=== PATIENT | female | born 1955 | race Caucasian/White ===

== ENCOUNTER 2017-02-21 12:28 | Inpatient (IN) | payer OTHER, MEDICARE ==
[~2017-02-21] VITALS: Ht 160 cm; Wt 66.4 kg
[~2017-02-21 12:28] MED LIST: BENZ1TAB PO; RISP3 PO; SERO400T PO; SERO50TA PO; TRAZ50TA12 PO
[2017-02-21 12:30] VITALS: BP 129/63; PULSE 84; RESP 28; TEMP 98.6; O2SAT 99
--- NOTE | 2017-02-21 13:04 | PD ---
HPI Chief Complaint: Psychiatric Symptoms Time Seen by Provider: 12:55 Travel History International Travel<30 days: No Contact w/Intl Traveler<30days: No Traveled to known affect area: No History of Present Illness HPI 61-year-old female long-standing history of schizophrenia presents with her sister as well as her son who is her power of account planner for psychiatric evaluation. For the past few days the patient has been refusing to take her psychiatric medication. She takes Benztropine, Seroquel and trazodone. For the past few days she has been having increasing hallucinations. Specifically she reports that she hears voices of "a colored man" who is screaming at her and threatening her and telling her to kill herself. She also sees people and swats at them. She has been psychiatrically decompensating at home and this prompted evaluation. She sees psychiatry at [facility]. She denies any suicidal or homicidal ideation, drug or alcohol use. She has no other complaints. PFSH Past Medical History Blood Disorders: No Anxiety: Yes Depression: Yes Cancer: No Cardiovascular Problems: No Diabetes: No Diminished Hearing: No Endocrine: Yes (PER MEDICAL RECORD) Gastrointestinal Disorders: No Glaucoma: Yes Genitourinary: No Headaches: Yes Immune Disorder: No Implanted Vascular Access Dvce: No Musculoskeletal: No Neurologic: No Psychiatric: Yes Reproductive: No Respiratory: No Integumentary: Yes (PT PICKS AT SKIN) Immunizations Current: Yes Schizophrenia: Yes (DIAGNOSED A CHILD) Seizures: No Thyroid Disease: Yes (HYPOTHYROID- PER MEDICAL RECORD) Menopausal: Yes : 0 Para: 0 Miscarriage: 0 : 0 Past Surgical History Eye Surgery: Yes Other Surgery: Yes Social History Alcohol Use: No Tobacco Use: No (quit years ago ) Substance Use: No Allergies-Medications (Allergen,Severity, Reaction): Coded Allergies: Risperdal (Verified Allergy, Unknown, 09/11/16) Increased behaviors such as spreading feces on the wall and urinate on herself per nephew. Per nephew/DARA Silva [phone]. Zyprexa (Verified Allergy, Unknown, 09/11/16) Per nephew her delusions became more extreme. Per nephew/DARA Silva [phone]. Depakote (Verified Adverse Reaction, Unknown, 09/11/16) Thrombocytopenia. Reported Meds & Prescriptions Reported Meds & Active Scripts Active Trazodone (Trazodone HCl) 50 Mg Tab 50 Mg PO HS PRN Seroquel (Quetiapine Fumarate) 50 Mg Tab 50 Mg PO DAILY @ 9AM, 6PM Seroquel (Quetiapine Fumarate) 400 Mg Tab 400 Mg PO HS Benztropine (Benztropine Mesylate) 1 Mg Tab 1 Mg PO BID Reported Seroquel (Quetiapine Fumarate) 400 Mg Tab 400 Mg PO HS Benztropine (Benztropine Mesylate) 1 Mg Tab 1 Mg PO BID Risperdal (Risperidone) 3 Mg Tab 3 Mg PO Q12HR Review of Systems Except as stated in HPI: all other systems reviewed are Neg Physical Exam Narrative GENERAL: Well-developed well-nourished female in no acute distress SKIN: Warm and dry. HEAD: Atraumatic. Normocephalic. EYES: Pupils equal and round. No scleral icterus. No injection or drainage. ENT: No nasal bleeding or discharge. Mucous membranes pink and moist. NECK: Trachea midline. No JVD. CARDIOVASCULAR: Regular rate and rhythm. No murmur appreciated. RESPIRATORY: No accessory muscle use. Clear to auscultation. Breath sounds equal bilaterally. GASTROINTESTINAL: Abdomen soft, non-tender, nondistended. Hepatic and splenic margins not palpable. MUSCULOSKELETAL: No obvious deformities. NEUROLOGICAL: Awake and alert. No obvious cranial nerve deficits. Motor grossly within normal limits. Normal speech. PSYCHIATRIC: Insight and judgment limited. Data Data Last Documented VS Vital Signs Date Time Temp Pulse Resp B/P Pulse Ox O2 Delivery O2 Flow Rate FiO2 02/21/17 12:30 98.6 84 28 129/63 99 Room Air Orders Complete Blood Count With Diff (02/21/17 12:56) Comprehensive Metabolic Panel (02/21/17 12:56) Psych Screen (02/21/17 12:56) Drug Screen, Random Urine (02/21/17 12:56) Labs Laboratory Tests Test 02/21/17 02/21/17 13:10 13:20 White Blood Count 6.3 TH/MM3 Red Blood Count 3.75 MIL/MM3 Hemoglobin 11.9 GM/DL Hematocrit 34.5 % Mean Corpuscular Volume 92.0 FL Mean Corpuscular Hemoglobin 31.7 PG Mean Corpuscular Hemoglobin 34.4 % Concent Red Cell Distribution Width 12.6 % Platelet Count 256 TH/MM3 Mean Platelet Volume 7.1 FL Neutrophils (%) (Auto) 69.8 % Lymphocytes (%) (Auto) 18.6 % Monocytes (%) (Auto) 8.2 % Eosinophils (%) (Auto) 2.8 % Basophils (%) (Auto) 0.6 % Neutrophils # (Auto) 4.4 TH/MM3 Lymphocytes # (Auto) 1.2 TH/MM3 Monocytes # (Auto) 0.5 TH/MM3 Eosinophils # (Auto) 0.2 TH/MM3 Basophils # (Auto) 0.0 TH/MM3 CBC Comment DIFF FINAL Differential Comment Sodium Level 140 MEQ/L Potassium Level 3.8 MEQ/L Chloride Level 104 MEQ/L Carbon Dioxide Level 31.3 MEQ/L Anion Gap 5 MEQ/L Blood Urea Nitrogen 21 MG/DL Creatinine 0.96 MG/DL Estimat Glomerular Filtration 59 ML/MIN Rate Random Glucose 94 MG/DL Calcium Level 9.3 MG/DL Total Bilirubin 0.6 MG/DL Aspartate Amino Transf 22 U/L (AST/SGOT) Alanine Aminotransferase 12 U/L (ALT/SGPT) Alkaline Phosphatase 82 U/L Total Protein 7.5 GM/DL Albumin 3.0 GM/DL Urine Opiates Screen NEG Urine Barbiturates Screen NEG Urine Amphetamines Screen NEG Urine Benzodiazepines Screen NEG Urine Cocaine Screen NEG Urine Cannabinoids Screen NEG MDM Medical Decision Making Medical Screen Exam Complete: Yes Emergency Medical Condition: Yes Medical Record Reviewed: Yes Differential Diagnosis Acute psychosis, schizophrenia, medication noncompliance Narrative Course 61-year-old female with history of schizophrenia presents with worsening hallucinations, refusing to take her outpatient psychiatric medications. Mental health screening discussed with the patient. Psychiatric screen ordered. The patient is medically cleared for psychiatric disposition. Diagnosis Primary Impression: Schizophrenia Qualified Code: F20.9 - Schizophrenia, unspecified type Tal Gordillo February 21, 2017 13:04
[2017-02-21 13:22] LABS: AUTOMATED NEUTROPHIL # 4.4 TH/MM3 (1.8-7.7); BASOPHIL % 0.6 % (0.0-2.0); EOSINOPHIL # 0.2 TH/MM3 (0-0.4); EOSINOPHIL % 2.8 % (0.0-4.0); HEMATOCRIT 34.5 % (35.0-46.0); HEMO FLAGS DIFF FINAL; LYMPH % 18.6 % (9.0-44.0); LYMPHOCYTE # 1.2 TH/MM3 (1.0-4.8); MEAN CORPUSCULAR HEMOGLOBIN 31.7 PG (27.0-34.0); MEAN CORPUSCULAR HGB CONC 34.4 % (32.0-36.0); MONO % 8.2 % (0.0-8.0); NEUT % 69.8 % (16.0-70.0); PLATELET COUNT 256 TH/MM3 (150-450); RED BLOOD COUNT 3.75 MIL/MM3 (4.00-5.30); RED CELL DISTRIBUTION WIDTH 12.6 % (11.6-17.2); WHITE BLOOD COUNT 6.3 TH/MM3 (4.0-11.0)
[2017-02-21 13:43] LABS: ANION GAP 5 MEQ/L (5-15); AST (GOT) 22 U/L (15-37); BICARBONATE 31.3 MEQ/L (21.0-32.0); BLOOD UREA NITROGEN 21 MG/DL (7-18); CHLORIDE 104 MEQ/L (98-107); GLOMERULAR FILTRATION RATE 59 ML/MIN (>89); POTASSIUM 3.8 MEQ/L (3.5-5.1); SODIUM (NA) 140 MEQ/L (136-145)
[2017-02-21 13:46] LABS: AMPHETAMINE, URINE NEG (NEG); BARBITURATES, URINE NEG (NEG); COCAINE, URINE NEG (NEG)
[2017-02-21 13:47] LABS: ALKALINE PHOSPHATASE 82 U/L (45-117); ALT (GPT) 12 U/L (10-53); TOTAL BILIRUBIN ADULT 0.6 MG/DL (0.2-1.0)
[2017-02-21] MEDS ORDERED: MULT-135 PO (16:54)
[2017-02-21 18:48] VITALS: BP 132/73; PULSE 76; RESP 16; O2SAT 96
[2017-02-21 21:43] VITALS: BP 128/68; PULSE 88; RESP 16; O2SAT 99
[2017-02-22 01:48] VITALS: BP 139/78; PULSE 79; RESP 20; O2SAT 97
[2017-02-22] MEDS: NEOMYCIN/POLYMYXIN/HYDROCORT OTIC SOLN 10 ML BTL RIGHT EAR SCH ×4 (02:30→17:37)
[2017-02-22 05:00] VITALS: BP 132/76; PULSE 78; RESP 20; O2SAT 98
[2017-02-22 10:30] VITALS: BP 168/90; PULSE 89; RESP 16; TEMP 99.2; O2SAT 100
[2017-02-22] MEDS: QUEtiapine FUMARATE 25 MG TAB PO ONE (11:45)
[2017-02-22] MEDS: LORazepam 2 MG/ML VIAL IM ONE ×2 (11:45→12:48)
[2017-02-22 13:23] VITALS: BP 131/76; PULSE 66; RESP 18; TEMP 98.2; O2SAT 95
--- NOTE | 2017-02-22 14:41 | PD ---
History of Present Illness Chief Complaint: Psychiatric Symptoms Time Seen by Provider: 11:15 Travel History International Travel<30 Days: No Contact w/Intl Traveler<30days: No Known affected area: No Legal Status Legal Status: Cox Act Cox Act Signed By: VIJAY Crespo History of Present Illness: History of Present Illness HPI 61-year-old female with history of schizoaffective disorder, multiple psychiatric hospitalizations who present to [facility] ED with her sister as well as her son who is her power of attorney lawyer for psychiatric evaluation. As per the sister and the nephew the patient has been refusing to take her psychiatric medication and has been hiding it behind the toilet, she has been more agitated and reports voices that tell her to get a hammer and hurt people as well as reports that she hears voices of "a colored man" who is screaming at her and threatening her and telling her to kill herself. She also sees people and swats at them. EMR is reviewed. her last psychiatric hosp was at [facility] in Sep 2016 for treatment of psychosis. Patient is seen in J pod. She is alert, responds to her name, is s creaming and talking very loudly. She is threatening to walk out of the hospital. She is refusing to answer any questions and screams at staff to " let me go or I will walk out". That is not my sister and I am not from here . I am from [place] and that is where I am going to go". She does not respond to verbal redirection.Requires medication at this time. PFSH Past Medical History Blood Disorders: No Anxiety: Yes Depression: Yes Cancer: No Cardiovascular Problems: No Diabetes: No Diminished Hearing: No Endocrine: Yes (PER MEDICAL RECORD) Gastrointestinal Disorders: No Glaucoma: Yes Genitourinary: No Headaches: Yes Immune Disorder: No Implanted Vascular Access Dvce: No Musculoskeletal: No Neurologic: No Psychiatric: Yes Reproductive: No Respiratory: No Integumentary: Yes (PT PICKS AT SKIN) Immunizations Current: Yes Schizophrenia: Yes (DIAGNOSED A CHILD) Seizures: No Thyroid Disease: Yes (HYPOTHYROID- PER MEDICAL RECORD) Menopausal: Yes : 0 Para: 0 Miscarriage: 0 : 0 Past Surgical History Eye Surgery: Yes Other Surgery: Yes Psychiatric History Psychiatric History Hx Psychiatric Treatment: Patient has received tretament in [facility] since 2011 and twice in 2014 and this year 2016 she has returned for the 6th admission She denies having any of those thoughts at this time and she also denies having had any voices today and feels she is much better. However she cries and appears sad at the time of this interview. History of Inpatient Treatment: Yes Guns or firearms in home: No Social History Single female who lives with her sister as well as with her nephew. Maribel is blind. On disability Hx Alcohol Use: No Hx Tobacco Use: No Hx Substance Use: No Hx of Substance Use Treatment: No Family Psychiatric History Unable to obtain at thsi time. Allergies-Medications (Allergen,Severity, Reaction): Coded Allergies: Risperdal (Verified Allergy, Unknown, 09/11/16) Increased behaviors such as spreading feces on the wall and urinate on herself per nephew. Per nephew/DARA Silva [phone]. Zyprexa (Verified Allergy, Unknown, 09/11/16) Per nephew her delusions became more extreme. Per nephew/DARA Silva [phone]. Depakote (Verified Adverse Reaction, Unknown, 09/11/16) Thrombocytopenia. Reported Meds & Prescriptions Reported Meds & Active Scripts Active Trazodone (Trazodone HCl) 50 Mg Tab 50 Mg PO HS PRN Seroquel (Quetiapine Fumarate) 50 Mg Tab 50 Mg PO DAILY @ 9AM, 6PM Seroquel (Quetiapine Fumarate) 400 Mg Tab 400 Mg PO HS Benztropine (Benztropine Mesylate) 1 Mg Tab 1 Mg PO BID Reported Multi Vitamin (Multiple Vitamin) 1 Tab Tab 1 Tab PO DAILY Review of Systems ROS Limitations: Uncooperative, Psychotic Exam Alert: Yes [place]: Person (ox 4 ) Mood: Calm Affect: Appropriate Speech: Clear, Illogical Eye Contact: Other Memory Intact: Comment (Unable to tets) Hallucinations: Auditory Delusions: No (unable to determine) Suicidal: Ideation (Unable to assess) Homicidal: Ideation (to take a hammer and hurt people) MDM Medical Decision Making Medical Record Reviewed: Yes Assessment/Plan 61 year old female with history of schizoaffective disorder who family report has been refusing her psychiatric medication and they found her medication behind the toilet, has been more agitated as well as experiencing increase in hallucinations. At this time the patient is agitated, unable to accept verbal redirection. threatening to leave the hospital. This patient will be admitted in order to restart her psychiatric medication, maintain safety as well as stabilize current symptoms. Orders Diet Regular Basic (02/21/17 Dinner) Xaogzzco-[id number]-Hk Otic Soln (Cortispo (02/22/17 02:30) Diet Regular Basic (02/22/17 Lunch) Lorazepam Inj (Ativan Inj) (02/22/17 11:30) Quetiapine (Seroquel) (02/22/17 11:30) Results Vital Signs Date Time Temp Pulse Resp B/P Pulse Ox O2 Delivery O2 Flow Rate FiO2 02/22/17 13:23 98.2 66 18 131/76 95 Room Air 02/22/17 10:30 99.2 89 16 168/90 100 Room Air 02/22/17 05:00 78 20 132/76 98 Room Air 02/22/17 01:48 79 20 139/78 97 Room Air 02/21/17 21:43 88 16 128/68 99 Room Air 02/21/17 18:48 76 16 132/73 96 Room Air Diagnosis Primary Impression: SCHIZOAFFECTIVE DISORDER, BIPOLAR TYPE Admitting Information Admitting Physician Requests: Admit Angela Kumari DENTAL TREATMENT COORDINATOR February 22, 2017 14:40
[2017-02-22] MEDS ORDERED: ALUMINUM/MAGNESIUM/SIMETH 30 ML CUP PO PRN (15:00)
[2017-02-22] MEDS ORDERED: MAGNESIUM HYDROXIDE SUSP 30 ML CUP PO PRN (15:00)
[2017-02-22 16:27] VITALS: BP 136/63; PULSE 81; TEMP 97.2
[2017-02-23 06:00] VITALS: BP 105/55; PULSE 68; RESP 18; TEMP 97.8; O2SAT 98
[2017-02-23] MEDS: NEOMYCIN/POLYMYXIN/HYDROCORT OTIC SOLN 10 ML BTL RIGHT EAR SCH ×5 (06:00→21:57)
[2017-02-23 08:31] LABS: ANION GAP 9 MEQ/L (5-15); BICARBONATE 27.6 MEQ/L (21.0-32.0); BLOOD UREA NITROGEN 16 MG/DL (7-18); CHLORIDE 103 MEQ/L (98-107); GLOMERULAR FILTRATION RATE 80 ML/MIN (>89); POTASSIUM 3.6 MEQ/L (3.5-5.1); SODIUM (NA) 140 MEQ/L (136-145)
[2017-02-23 08:33] LABS: HDL CHOLESTEROL 67.3 MG/DL (40.0-60.0); LDL CHOLESTEROL 92 MG/DL (0-99)
[2017-02-23] MEDS ORDERED: NICOTINE 21 MG/24 HR PATCH T-DERMAL SCH (09:00)
[2017-02-23] MEDS ORDERED: ACETAMINOPHEN 325 MG TAB PO PRN (15:15)
[2017-02-23] MEDS ORDERED: ALUMINUM/MAGNESIUM/SIMETH 30 ML CUP PO PRN (15:15)
[2017-02-23] MEDS ORDERED: diphenhydrAMINE HCL 50 MG CAP PO PRN (15:15)
[2017-02-23] MEDS ORDERED: hydrOXYzine HCL 50 MG TAB PO PRN (15:15)
--- NOTE | 2017-02-23 15:36 | HHI.HP ---
Provisional Diagnosis Admission Date February 22, 2017 at 15:01 [place] I. Schizoaffective disorder bipolar type f 25.0 Certification of Person's Competence To Provide Express and Informed Consent I have personally examined Emily Stearns , a person being served at [facility] on, February 23, 2017 15:14. Express and informed consent means consent voluntarily given in writing, by a competent person, after sufficient explanation and disclosure of the subject matter involved to enable the person to make a knowing and willful decision without any element of force, fraud, deceit, duress, or other form of constraint or coercion. This person is 18 years of age or older, is not now known to be incompetent to consent to treatment with a guardian advocate, and does not have a health care surrogate or proxy currently making medical treatment decisions. I have found this person to be one of the following: [] Competent to provide express and informed consent, as defined above, for voluntary admission to this facility and is competent to provide express and informed consent for treatment. He/she has the consistent capacity to make well reasoned, willful, and knowing decisions concerning his or her medical or mental health treatment. The person fully and consistently understands the purpose of the admission for examination/placement and is fully capable of personally exercising all rights assured [place] [xx] Incompetent to provide express and informed consent to voluntary admission , and this is incompetent to provide express and informed consent to treatment. The person must be transferred to involuntary status and a petition for a guardian advocate filed with the Circuit Court. [] Refusing to provide express and informed consent to voluntary admission but is competent to provide express and informed consent for treatment. The person must be discharged or transferred to involuntary status. Form shall be completed within 24 hours of a person's arrival at the receiving facility and filed in the clinical record of each person: 1. Admitted on a voluntary basis 2. Permitted to provide express and informed consent to his/her own treatment 3. Allowed to transfer from involuntary to voluntary status 4. Prior to permitting a person to consent to his or her own treatment after having been previously found incompetent to consent to treatment. History of Present Illness Capacity: Lacks Capacity HPI Patient is a 61-year-old white female comes here under Cox act from [facility] signed by Angela LINARES psychiatric nurse practitioner. That document reviewed and agreed with this dated February 22, 2017 at 11 AM essentially stating that patient is refusing medication exercising her medication behind the toilet the through increase auditory hallucinations telling her to get a hammer and to hurt others. Patient seen screened in the ED urine toxicology negative. Patient was admitted to the 2500 unit. She has had multiple visits to [facility] into the ED most recently being admitted 09/12/16 through 09/22/16 visit [id number]. At the present time patient seen in her room on 2500 with nurse Juan C and nurse Evelia. Patient laying in bed whining and crying yelling and markedly disorganized manner. Of interest patient is also legally blind. She states she does want to live at home anymore that she is afraid of her siblings who other her caregiver. She also somewhat vaguely acknowledges auditory hallucinations of a somewhat command nature telling her to hurt others. She acknowledges noncompliance with her medication is acknowledged that she gets more upset easier and more angry when she is off her medicine. She ascribes this to her family neck giving her her medicine. In any event at the present time patient markedly psychotic and delusional with auditory hallucinations. She does meet criteria under the Cox act for involuntary psychiatric hospitalization and also feel she does not have capacity to make decisions concerning either admission or medication thus I'll ask for healthcare surrogate and guardian advocate as well as doing a 1st opinion and requesting second opinion. We'll continue medication per the med reconciliation form hopeless be fairly short stay. We need to consult with patient's family about possibility of return to the family home versus a different placement Review of Systems ROS Limitations: Clinical Condition, Altered Mental Status, Other (patient making multiple somatic complaints about every organ system described from sore throat stiff muscles achy joints upset stomach chest pain for pain) Past Psych History Psychological trauma history Unable to obtain due to patient psychotic condition Violence risk - others (6 mos) Patient family give him or to harm her siblings Violence risk - self (6 mos) Patient denies Substance Abuse History Drugs/Alcohol past 12 months Denies Past Family Social History Coded Allergies: Risperdal (Verified Allergy, Unknown, 09/11/16) Increased behaviors such as spreading feces on the wall and urinate on herself per nephew. Per nephew/PODarrion - Vignesh Silva [phone]. Zyprexa (Verified Allergy, Unknown, 09/11/16) Per nephew her delusions became more extreme. Per nephew/POA - Vignesh Ricardo [phone]. Depakote (Verified Adverse Reaction, Unknown, 09/11/16) Thrombocytopenia. Past Medical History Patient medically cleared ED Active Scripts Trazodone 50 Mg Tab50 Mg PO HS PRN (INSOMNIA) #30 TAB Ref 0 Prov:Pablito Simms MD 09/22/16 Quetiapine (Seroquel)50 Mg Tab50 Mg PO daily @ 9am, 6pm #60 TAB Ref 0 Prov:Pablito Simms MD 09/22/16 Quetiapine (Seroquel)400 Mg [id number] Mg PO HS #30 TAB Ref 0 Prov:Pablito Simms MD 09/22/16 Benztropine 1 Mg Tab1 Mg PO BID #60 TAB Ref 0 Prov:Pablito Simms MD 09/22/16 Reported Medications Multiple Vitamin (Multi Vitamin)1 Tab Tab1 Tab PO DAILY 02/21/17 Discontinued Reported Medications Quetiapine (Seroquel)400 Mg [id number] Mg PO HS #30 TAB Ref 0 09/11/16 Benztropine 1 Mg Tab1 Mg PO BID #60 TAB Ref 0 09/11/16 Risperidone (Risperdal)3 Mg Tab3 Mg PO Q12HR #60 TAB Ref 0 09/11/16 Current Medications Medications (Trade) Dose Ordered Sig/Zhane Route Start Time Stop Time Status Last Admin (Cortisporin Otic Soln) 3 drop Q6HR RIGHT EAR 02/22/17 02:30 02/22/17 17:37 (Tylenol) 650 mg Q4H PRN PO 02/22/17 15:00 (Milk Of Magnesia Liq) 30 ml DAILY PRN PO 02/22/17 15:00 (Mag-Al Plus Susp Liq) 30 ml Q6H PRN PO 02/22/17 15:00 (Benadryl) 50 mg HS PRN PO 02/23/17 15:15 UNV (Tylenol) 650 mg Q4H PRN PO 02/23/17 15:15 UNV (Milk Of Magnesia Liq) 30 ml DAILY PRN PO 02/23/17 15:15 UNV (Mag-Al Plus Susp Liq) 30 ml Q6H PRN PO 02/23/17 15:15 UNV (Atarax) 50 mg Q6H PRN PO 02/23/17 15:15 UNV (Cogentin) 1 mg BID PO 02/23/17 21:00 UNV (Theragran) 1 tab DAILY PO 02/24/17 09:00 UNV (Desyrel) 50 mg HS PRN PO 02/23/17 15:15 UNV Non-Formulary Medication 400 mg HS PO 02/23/17 21:00 UNV Family History Unknown at this any family history mental health issues Social History Patient lives with family Patient's Strengths (min. 2) Patient verbal able access healthcare Physical Exam Patient seen screened in the ED exam reviewed and agreed with patient laying in bed doing markedly agitated while yelling when we came in her room. The neck appears supple. She is in no respiratory distress heart sounds normal abdomen soft for range of motion all 4 extremities Vital Signs Vital Signs Date Time Temp Pulse Resp B/P Pulse Ox O2 Delivery O2 Flow Rate FiO2 02/23/17 06:00 97.8 68 18 105/55 98 02/22/17 13:23 Room Air I/O 02/22/17 02/22/17 02/22/17 07:59 15:59 23:59 Intake Total 360 ml Balance 360 ml Mental Status Examination Alert diffusely confused loud screaming angry thin slender disheveled white female blind with no eye contact Appearance Disheveled screaming and uncooperative irritable Speech: Pressured, Rapid, Fast, Circumstantial, Tangential, Other (disorganized ) Orientation: Person Memory: Impaired (describe) (poor) Thought Process: Linear, Other (disorganized) Thought Content: Paranoid Language Poor Fund of Knowledge Small Hallucination Type: Auditory (with a somewhat command nature) Attention and Concentration: Other (poor) Suicidal Ideation: No (denies) Previous Suicide Attempts: No (known at this time) Homicidal Ideation: Yes (made threats to harm her siblings with a hammer) Previous Homicide Attempts: No Insight: Poor Judgment: Poor Affect: Other (marked increased range and intensity) Mood: Angry, Oppositional, Irritable Motor Activity: Normal gait Assessment & Plan Problem List: (1) SCHIZOAFFECTIVE DISORDER, BIPOLAR TYPE ICD Code: F25.0 Assessment & Plan Estimated LOS: days patient psychotic with manic features markedly paranoid and delusional. Patient meets criteria for involuntary admission on the Cox act. The first she does not have capacity thus I'll ask for healthcare surrogate and guardian advocate will contact continue medication for med reconciliation Discharge Planning To be determined Request Surrog/Guard Advoc?: Yes Pablito Simms MD February 23, 2017 15:36
[2017-02-23 16:39] LABS: HEMOGLOBIN A1a 1.1 %; HEMOGLOBIN A1b 1.4 %; HEMOGLOBIN Ao 85.3 %; HEMOGLOBIN F 0.2 %; HEMOGLOBIN LA1C 2.1 %; HEMOGLOBIN P3 5.2 %
[2017-02-23] MEDS: QUEtiapine FUMARATE 25 MG TAB PO SCH (17:31)
[2017-02-23 18:17] VITALS: BP 103/57; PULSE 85; RESP 15; TEMP 99.1; O2SAT 97
[2017-02-23] MEDS: QUEtiapine FUMARATE 200 MG TAB PO SCH (21:00)
[2017-02-23] MEDS: BENZTROPINE MESYLATE 1 MG TAB PO SCH (21:13)
[2017-02-23] MEDS: ACETAMINOPHEN 325 MG TAB PO PRN (21:15)
[2017-02-24 05:29] VITALS: BP 109/53; PULSE 73; RESP 15; TEMP 97.5; O2SAT 96
[2017-02-24] MEDS: NEOMYCIN/POLYMYXIN/HYDROCORT OTIC SOLN 10 ML BTL RIGHT EAR SCH ×4 (05:56→20:48)
[2017-02-24] MEDS: QUEtiapine FUMARATE 25 MG TAB PO SCH ×2 (09:00→17:41)
[2017-02-24] MEDS: BENZTROPINE MESYLATE 1 MG TAB PO SCH ×2 (09:10→20:48)
[2017-02-24] MEDS: MULTIVITAMIN TAB PO SCH (09:10)
--- NOTE | 2017-02-24 09:39 | HHI.PYPN ---
Subjective Remarks Patient seen in day room with nurse Kandy, chart reviewed, patient compliant medications. Patient continues quite whiny loud, anterolaterally somewhat manipulative. Stating she wants to stay here. I reinforced the fact that this is crisis unit and that we need to consider placement issues while she returns home with her family or friends a retirement. Patient is not very happy with that statement. However she is compliant medications for now will continue treatment no change Review of Systems Except as stated in HPI: all other systems reviewed are Neg Objective Alert: Yes [place]: Person (ox 4 ) Mood: Calm Affect: Appropriate Memory Intact: Comment (Unable to tets) Hallucinations: Auditory Delusions: Yes Delusion Type: Paranoid (vague vigilant) Suicidal: Ideation (Unable to assess) Homicidal: Ideation (to take a hammer and hurt people) Insight/Judgment Very poor Vitals/IOs Vital Signs Date Time Temp Pulse Resp B/P Pulse Ox O2 Delivery O2 Flow Rate FiO2 02/24/17 05:29 97.5 73 15 109/53 96 02/22/17 13:23 Room Air Intake and Output 02/23/17 02/23/17 02/24/17 08:00 16:00 00:00 Intake Total 120 ml 1080 ml 720 ml Balance 120 ml 1080 ml 720 ml Assessment & Plan Problem List: (1) SCHIZOAFFECTIVE DISORDER, BIPOLAR TYPE ICD Code: F25.0 Assessment & Plan Estimated LOS: days patient remains somewhat psychotic irritable and labile very little insight. She is vague about voices today. Now continue treatment Justification for Cont. Inpt. At this time patient decompensate placed in a lower level of care Discharge Planning To be determined Request HC Surrog/Guard Advoc?: Yes Pablito Simms MD February 24, 2017 09:39
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
--- NOTE | 2017-02-24 15:44 | PD.CONS ---
HPI Service [facility] Hospitalists Consult Requested By Psychiatric services Reason for Consult Medical management Primary Care Physician Non-Staff Diagnoses: History of Present Illness Written by Julisa Boyer PA-C acting as scribe for Dr. Taylor on 02/24/17 at 15:44. This is a 61-year-old female who is legally blind with no significant past medical history besides previous migraines who was admitted to the psychiatric unit under Cox act for refusing her medications as well as having increased auditory hallucinations that are telling her to get hammering to hurt others. Hospitalist services were consulted for medical management. Patient seen and examined today. Patient has multiple complaints s/p fall including pain in both wrists, shoulders and knees as well as right elbow and low back pain. She also complains of headache, throat pain and a dry mouth. In addition, patient complains of lower abdominal pain. She also reports nausea earlier but it is better without any associated vomiting. She denies any fever or chills. Review of Systems Except as stated in HPI: all other systems reviewed are Neg Past Family Social History Allergies: Coded Allergies: Risperdal (Verified Allergy, Unknown, 09/11/16) Increased behaviors such as spreading feces on the wall and urinate on herself per nephew. Per nephew/DARA Silva [phone]. Zyprexa (Verified Allergy, Unknown, 09/11/16) Per nephew her delusions became more extreme. Per nephew/DARA Silva [phone]. Depakote (Verified Adverse Reaction, Unknown, 09/11/16) Thrombocytopenia. Past Medical History Schizoaffective disorder, bipolar type Legally blind Migraines Recent fall Past Surgical History Patient denies any previous surgeries Reported Medications Trazodone 50 Mg Tab50 Mg PO HS PRN (INSOMNIA) #30 TAB Ref 0 Prov:Pablito Simms MD 09/22/16 Quetiapine (Seroquel)50 Mg Tab50 Mg PO daily @ 9am, 6pm #60 TAB Ref 0 Prov:Pablito Simms MD 09/22/16 Quetiapine (Seroquel)400 Mg Ent347 Mg PO HS #30 TAB Ref 0 Prov:Pablito Simms MD 09/22/16 Benztropine 1 Mg Tab1 Mg PO BID #60 TAB Ref 0 Prov:Pablito Simms MD 09/22/16 Multiple Vitamin (Multi Vitamin)1 Tab Tab1 Tab PO DAILY 02/21/17 Active Ordered Medications Current Medications Medications (Trade) Dose Ordered Sig/Zhane Route Start Time Stop Time Status Last Admin (Cortisporin Otic Soln) 3 drop Q6HR RIGHT EAR 02/22/17 02:30 02/24/17 12:00 (Tylenol) 650 mg Q4H PRN PO 02/22/17 15:00 02/23/17 21:15 (Benadryl) 50 mg HS PRN PO 02/23/17 15:15 (Milk Of Magnesia Liq) 30 ml DAILY PRN PO 02/23/17 15:15 (Mag-Al Plus Susp Liq) 30 ml Q6H PRN PO 02/23/17 15:15 (Atarax) 50 mg Q6H PRN PO 02/23/17 15:15 (Cogentin) 1 mg BID PO 02/23/17 21:00 02/24/17 09:10 (Theragran) 1 tab DAILY PO 02/24/17 09:00 02/24/17 09:10 (Desyrel) 50 mg HS PRN PO 02/23/17 15:15 (SEROquel) 50 mg BID@,18 PO 02/23/17 18:00 02/24/17 09:00 (SEROquel) 400 mg HS PO 02/23/17 21:00 02/23/17 21:00 Family History Patient denies any family medical history of diabetes, high blood pressure or cancer. Social History Patient denies any tobacco use, alcohol consumption or illicit drug use. Patient states she is single and has no children however nursing staff informs me that she does in fact have children. Physical Exam Vital Signs Vital Signs Date Time Temp Pulse Resp B/P Pulse Ox O2 Delivery O2 Flow Rate FiO2 02/24/17 05:29 97.5 73 15 109/53 96 02/23/17 18:17 99.1 85 15 103/57 97 Physical Exam GENERAL: This is a well-nourished, well-developed patient, in no apparent distress. SKIN: No rashes, ecchymoses or lesions. Cool and dry. HEAD: Atraumatic. Normocephalic. No temporal or scalp tenderness. EYES: Pupils equal round and reactive. Extraocular motions intact. No scleral icterus. No injection or drainage. ENT: Nose without bleeding, purulent drainage or septal hematoma. Throat without erythema, tonsillar hypertrophy or exudate. Uvula midline. Airway patent. NECK: Trachea midline. No JVD or lymphadenopathy. Supple, nontender, no meningeal signs. CARDIOVASCULAR: Regular rate and rhythm without murmurs, gallops, or rubs. RESPIRATORY: Clear to auscultation. Breath sounds equal bilaterally. No wheezes , rales, or rhonchi. GASTROINTESTINAL: Abdomen soft, nondistended. (+) Tenderness palpation of the lower abdomen and suprapubic area. No hepato-splenomegaly, or palpable masses. No guarding. MUSCULOSKELETAL: Extremities without clubbing, cyanosis, or edema. Appreciable edema in the right knee with superficial abrasion. Patient elicits tenderness to palpation of both wrists, both shoulders, right elbow, both knees and lumbar spine. No calf tenderness. NEUROLOGICAL: Awake and alert. Oriented to self and place only. Able to move all extremities. No focal neurologic findings appreciated. Normal speech. Result Diagram: 02/21/17 1310 02/23/17 0734 Assessment and Plan Assessment and Plan 61-year-old female who is legally blind with no significant past medical history besides previous migraines who was admitted to the psychiatric unit under Cox act for refusing her medications as well as having increased auditory hallucinations that are telling her to get hammering to hurt others. Hospitalist services were consulted for medical management. Schizoaffective disorder, bipolar type Management per psychiatric team Multiple joint pains and lumbar spine status post fall with appreciable swelling in the right knee Xray bilateral shoulders Xray bilateral knees Xray lumbar spine Will follow up on results of imaging studies Lower abdominal and suprapubic pain Obtain UA KUB Monitor for BM DVT prophylaxis Encourage ambulation Julisa Boyer February 24, 2017 15:44
[2017-02-24 16:00] VITALS: BP 108/56; PULSE 92; RESP 16; TEMP 97.7; O2SAT 94
[2017-02-24] MEDS: ACETAMINOPHEN 325 MG TAB PO PRN (20:48)
[2017-02-24] MEDS: MAGNESIUM HYDROXIDE SUSP 30 ML CUP PO PRN (20:48)
[2017-02-24] MEDS: QUEtiapine FUMARATE 200 MG TAB PO SCH (20:48)
--- NOTE | 2017-02-24 21:56 | RADRPT ---
EXAM DATE/TIME: 02/24/2017 21:38 [facility] COMPARISON: No previous studies available for comparison. INDICATIONS : Right shoulder pain after fall. MEDICAL HISTORY : None. SURGICAL HISTORY : None. ENCOUNTER: Initial ACUITY: 3 days PAIN SCORE: 10/10 LOCATION: Right shoulder. FINDINGS: The glenohumeral joint is approximated. High riding humeral head or moderate hypertrophic changes of the acromioclavicular joint. Hydroxyapatite deposition adjacent to the greater tuberosity. CONCLUSION: 1. Calcific tendinosis and high riding humeral head consistent with rotator cuff pathology. 2. No fracture or dislocation. Aryan Calzada MD on February 24, 2017 at 21:53 Board Certified Radiologist. This report was verified electronically.
--- NOTE | 2017-02-24 22:01 | RADRPT ---
EXAM DATE/TIME: 02/24/2017 21:36 [facility] COMPARISON: US KIDNEY/RENAL/BLADDER, December 15, 2015, 17:47. INDICATIONS : Abdominal pain after fall. MEDICAL HISTORY : None. SURGICAL HISTORY : None. ENCOUNTER: Initial ACUITY: 3 days PAIN SCORE: 10/10 LOCATION: Bilateral abdomen. FINDINGS: Degenerative changes of the spine are noted. Large amount of stool throughout the colon. No abnormal calcifications. CONCLUSION: Large amount of stool. Aryan Calzada MD on February 24, 2017 at 21:58 Board Certified Radiologist. This report was verified electronically.
--- NOTE | 2017-02-24 22:03 | RADRPT ---
EXAM DATE/TIME: 02/24/2017 21:38 [facility] COMPARISON: No previous studies available for comparison. INDICATIONS : Left shoulder pain after fall. MEDICAL HISTORY : None. SURGICAL HISTORY : None. ENCOUNTER: Initial ACUITY: 3 days PAIN SCORE: 10/10 LOCATION: Left shoulder. FINDINGS: Moderate hypertrophic changes of the acromial icular joint with osteophyte formation seen. Calcific t endinosis is noted adjacent to the greater tuberosity with hydroxyapatite deposition noted. High ridi ng humeral head. CONCLUSION: Hydroxyapatite deposition without fracture or dislocation. Degenerative changes. Aryan Calzada MD on February 24, 2017 at 22:01 Board Certified Radiologist. This report was verified electronically.
--- NOTE | 2017-02-24 22:03 | RADRPT ---
EXAM DATE/TIME: 02/24/2017 21:37 [facility] COMPARISON: No previous studies available for comparison. INDICATIONS : Lower back pain after fall. MEDICAL HISTORY : None. SURGICAL HISTORY : None. ENCOUNTER: Initial ACUITY: 3 days PAIN SCORE: 10/10 LOCATION: Bilateral lower back. FINDINGS: Multilevel osteophyte formation is seen with prominent bridging anterior osteophytosis in a pattern s uggestive of dish. Smooth syndesmophyte formation is also seen in the lower thoracic spine. There is mild disc space narrowing L5-S1 otherwise the disc spaces are preserved. CONCLUSION: DISH without evidence for fracture. Aryan Calzada MD on February 24, 2017 at 22:00 Board Certified Radiologist. This report was verified electronically.
--- NOTE | 2017-02-24 22:04 | RADRPT ---
EXAM DATE/TIME: 02/24/2017 21:39 [facility] COMPARISON: No previous studies available for comparison. INDICATIONS : Right knee pain after fall. MEDICAL HISTORY : None. SURGICAL HISTORY : None. ENCOUNTER: Initial ACUITY: 1 day PAIN SCORE: 10/10 LOCATION: Right knee. FINDINGS: Mild decreased bone density. Tiny effusion. Moderate osteoarthritis. No fracture or dislocation. CONCLUSION: No fracture or dislocation. Aryan Calzada MD on February 24, 2017 at 22:02 Board Certified Radiologist. This report was verified electronically.
--- NOTE | 2017-02-24 22:04 | RADRPT ---
EXAM DATE/TIME: 02/24/2017 21:39 [facility] COMPARISON: No previous studies available for comparison. INDICATIONS : Left knee pain after fall. MEDICAL HISTORY : None. SURGICAL HISTORY : None. ENCOUNTER: Initial ACUITY: 3 days PAIN SCORE: 10/10 LOCATION: Left knee. FINDINGS: Mild osteoarthritis and decreased bone density. No fracture or dislocation. No effusion. CONCLUSION: Mild degenerative changes. Aryan Calzada MD on February 24, 2017 at 22:02 Board Certified Radiologist. This report was verified electronically.
[2017-02-24] MEDS: traZODone HCL 50 MG TAB PO PRN (22:14)
[2017-02-25 05:30] VITALS: BP 118/70; PULSE 81; RESP 16; TEMP 97.9
[2017-02-25] MEDS: NEOMYCIN/POLYMYXIN/HYDROCORT OTIC SOLN 10 ML BTL RIGHT EAR SCH ×4 (06:18→23:00)
[2017-02-25] MEDS: ACETAMINOPHEN 325 MG TAB PO PRN (06:18)
[2017-02-25] MEDS: BENZTROPINE MESYLATE 1 MG TAB PO SCH ×2 (09:00→21:06)
[2017-02-25] MEDS: MULTIVITAMIN TAB PO SCH (09:00)
[2017-02-25] MEDS: QUEtiapine FUMARATE 25 MG TAB PO SCH ×2 (09:00→16:52)
--- NOTE | 2017-02-25 15:15 | HHI.PYPN ---
Subjective Remarks Patient seen in her room with nurse Kandy, chart review, patient continues to isolate showing some paranoia focused towards family though the intensity and frequency in the duration is somewhat softer. She continues to say she wants to stay here for a long time. I continue to reinforce with her that this is a short term facility that her choices will be either home or in some type of a half-way Review of Systems Except as stated in HPI: all other systems reviewed are Neg Objective Alert: Yes [place]: Person (ox 4 ) Mood: Calm Affect: Appropriate Memory Intact: Comment (Unable to tets) Hallucinations: Auditory Delusions: Yes Delusion Type: Paranoid (vague vigilant) Suicidal: Ideation (Unable to assess) Homicidal: Ideation (to take a hammer and hurt people) Insight/Judgment Poor Vitals/IOs Vital Signs Date Time Temp Pulse Resp B/P Pulse Ox O2 Delivery O2 Flow Rate FiO2 02/25/17 05:30 97.9 81 16 118/70 02/24/17 16:00 94 02/22/17 13:23 Room Air Intake and Output 02/24/17 02/24/17 02/25/17 08:00 16:00 00:00 Intake Total 480 ml 960 ml 840 ml Balance 480 ml 960 ml 840 ml Assessment & Plan Problem List: (1) SCHIZOAFFECTIVE DISORDER, BIPOLAR TYPE ICD Code: F25.0 Assessment & Plan Estimated LOS: days patient to somewhat psychotic and paranoid though slightly softer. Continue treatment Justification for Cont. Inpt. At this time patient decompensate if placed a lower level of care Discharge Planning To be determined Request HC Surrog/Guard Advoc?: Yes Pablito Simms MD February 25, 2017 15:15
--- NOTE | 2017-02-25 17:19 | HHI.PR ---
Subjective Remarks Patient still c/o of pain in hands and knees as well as in shoulders denies cp/sob c/o swelling of legs as well as pain vital signs seems to be stable Objective Vitals Vital Signs Date Time Temp Pulse Resp B/P Pulse Ox O2 Delivery O2 Flow Rate FiO2 02/25/17 05:30 97.9 81 16 118/70 I/O 02/24/17 02/24/17 02/24/17 02/25/17 02/25/17 02/25/17 07:00 15:00 23:00 07:00 15:00 23:00 Intake Total 120 ml 1320 ml 840 ml Balance 120 ml 1320 ml 840 ml Intake Oral 120 ml 1320 ml Oral Supplement 840 ml # Voids 1 5 2 2 # Bowel Movements 1 1 Result Diagram: 02/21/17 1310 02/23/17 0734 Imaging Last Impressions Shoulder X-Ray 02/24/17 0000 Signed Impressions: Service Date/Time: Friday, February 24, 2017 21:38 - CONCLUSION: 1. Calcific tendinosis and high riding humeral head consistent with rotator cuff pathology. 2. No fracture or dislocation. Aryan Calzada MD Lumbar Spine X-Ray 02/24/17 0000 Signed Impressions: Service Date/Time: Friday, February 24, 2017 21:37 - CONCLUSION: DISH without evidence for fracture. Aryan Calzada MD Knee X-Ray 02/24/17 0000 Signed Impressions: Service Date/Time: Friday, February 24, 2017 21:39 - CONCLUSION: Mild degenerative changes. Aryan Calzada MD Abdomen X-Ray 02/24/17 0000 Signed Impressions: Service Date/Time: Friday, February 24, 2017 21:36 - CONCLUSION: Large amount of stool. Aryan Calzada MD Objective Remarks GENERAL: This is a well-nourished, well-developed patient, in no apparent distress. SKIN: No rashes, ecchymoses or lesions. Cool and dry. HEAD: Atraumatic. Normocephalic. No temporal or scalp tenderness. EYES: Pupils equal round and reactive. Extraocular motions intact. No scleral icterus. No injection or drainage. ENT: Nose without bleeding, purulent drainage or septal hematoma. Throat without erythema, tonsillar hypertrophy or exudate. Uvula midline. Airway patent. NECK: Trachea midline. No JVD or lymphadenopathy. Supple, nontender, no meningeal signs. CARDIOVASCULAR: Regular rate and rhythm without murmurs, gallops, or rubs. RESPIRATORY: Clear to auscultation. Breath sounds equal bilaterally. No wheezes , rales, or rhonchi. GASTROINTESTINAL: Abdomen soft, nondistended. (+) Tenderness palpation of the lower abdomen and suprapubic area. No hepato-splenomegaly, or palpable masses. No guarding. MUSCULOSKELETAL: Extremities without clubbing, cyanosis, or edema. Appreciable edema in the right knee with superficial abrasion. Patient elicits tenderness to palpation of both wrists, both shoulders, right elbow, both knees and lumbar spine. No calf tenderness. Right lower extremity looks slightly more swollen when compared to the left, also both lower extremities are tender to palpation. NEUROLOGICAL: Awake and alert. Oriented to self and place only. Able to move all extremities. No focal neurologic findings appreciated. Normal speech. Medications and IVs Current Medications Medications (Trade) Dose Ordered Sig/Zhane Route Start Time Stop Time Status Last Admin (Cortisporin Otic Soln) 3 drop Q6HR RIGHT EAR 02/22/17 02:30 02/25/17 16:47 (Tylenol) 650 mg Q4H PRN PO 02/22/17 15:00 02/25/17 06:18 (Benadryl) 50 mg HS PRN PO 02/23/17 15:15 (Milk Of Magnesia Liq) 30 ml DAILY PRN PO 02/23/17 15:15 02/24/17 20:48 (Mag-Al Plus Susp Liq) 30 ml Q6H PRN PO 02/23/17 15:15 (Atarax) 50 mg Q6H PRN PO 02/23/17 15:15 (Cogentin) 1 mg BID PO 02/23/17 21:00 02/25/17 09:00 (Theragran) 1 tab DAILY PO 02/24/17 09:00 02/25/17 09:00 (Desyrel) 50 mg HS PRN PO 02/23/17 15:15 02/24/17 22:14 (SEROquel) 50 mg BID@,18 PO 02/23/17 18:00 02/25/17 16:52 (SEROquel) 400 mg HS PO 02/23/17 21:00 02/24/17 20:48 Urinary Catheter: No Vascular Central Line Catheter: No A/P Assessment and Plan 61-year-old female who is legally blind with no significant past medical history besides previous migraines who was admitted to the psychiatric unit under Cox act for refusing her medications as well as having increased auditory hallucinations that are telling her to get hammering to hurt others. Hospitalist services were consulted for medical management. Schizoaffective disorder, bipolar type Management per psychiatric team Multiple joint pains and lumbar spine status post fall with appreciable swelling in the right knee X-ray of the right shoulder shows calcific tendinosis and high riding humeral head consistent with rotator cuff pathology. No fracture or dislocation. X-ray of the left shoulder shows hydroxyapatite deposition without fracture or dislocation. Degenerative changes. Lumbar spine shows DISH without evidence for fracture. Knee x-ray shows degenerative changes. Follow-up with orthopedic surgery as an outpatient Lower abdominal and suprapubic pain Obtain UA KUB showed large amount of stool - I will place patient on Colace and will give MiraLAX 1. Monitor for BM Right Lower extremity edema/BL lower extremity pain Check venous doppler to r/o DVT. DVT prophylaxis Encourage ambulation Jesús Dillon MD February 25, 2017 17:19
[2017-02-25 17:31] VITALS: BP 120/68; PULSE 90; RESP 17; TEMP 97.3; O2SAT 95
[2017-02-25] MEDS: MAGNESIUM HYDROXIDE SUSP 30 ML CUP PO PRN (21:06)
[2017-02-25] MEDS: oxyCODONE/ACETAMINOPHEN 5 MG/325 MG TAB PO PRN (21:06)
[2017-02-25] MEDS: QUEtiapine FUMARATE 200 MG TAB PO SCH (21:06)
[2017-02-26] MEDS: NEOMYCIN/POLYMYXIN/HYDROCORT OTIC SOLN 10 ML BTL RIGHT EAR SCH ×4 (06:13→21:40)
[2017-02-26 06:35] VITALS: BP 99/58; PULSE 68; RESP 16; TEMP 97.1; O2SAT 99
[2017-02-26] MEDS: MULTIVITAMIN TAB PO SCH (08:50)
[2017-02-26] MEDS: QUEtiapine FUMARATE 25 MG TAB PO SCH ×2 (08:50→18:34)
[2017-02-26] MEDS: BENZTROPINE MESYLATE 1 MG TAB PO SCH ×2 (08:50→21:39)
--- NOTE | 2017-02-26 11:32 | RADRPT ---
EXAM DATE/TIME: 02/26/2017 10:58 [facility] COMPARISON: No previous studies available for comparison. INDICATIONS : Bilateral leg edema. MEDICAL HISTORY : Hypothyroidism. Glaucoma. Schizoaffective disease. Psychosis. Depression. Anxiety. SURGICAL HISTORY : Right eye detached retina. ENCOUNTER: Initial ACUITY: 1 day PAIN SCORE: 3/10 LOCATION: Bilateral leg. TECHNIQUE: Venous ultrasound of the left and right leg was performed from the inguinal ligament to the proximal calf. Real-time, color Doppler and spectral tracing, compression and augmentation techniques were us ed. FINDINGS: RIGHT LEG: There is normal compressibility of the deep venous system from the inguinal region to the proximal ca lf. No echogenic clot is seen in the lumen of the common femoral, femoral, popliteal, and posterior tibial veins. There is a normal response of the venous system to proximal and distal augmentation an d respiration. LEFT LEG: There is normal compressibility of the deep venous system from the inguinal region to the proximal ca lf. No echogenic clot is seen in the lumen of the common femoral, femoral, popliteal, and posterior tibial veins. There is a normal response of the venous system to proximal and distal augmentation an d respiration. CONCLUSION: Normal examination. Alexsander Marshall MD on February 26, 2017 at 11:30 Board Certified Radiologist. This report was verified electronically.
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
[2017-02-26] MEDS: MAGNESIUM HYDROXIDE SUSP 30 ML CUP PO PRN ×2 (14:22→21:38)
[2017-02-26 17:44] VITALS: BP 127/69; PULSE 79; RESP 17; TEMP 97.5; O2SAT 99
[2017-02-26] MEDS: QUEtiapine FUMARATE 200 MG TAB PO SCH (21:38)
[2017-02-26] MEDS: traZODone HCL 50 MG TAB PO PRN (21:39)
[2017-02-26] MEDS: oxyCODONE/ACETAMINOPHEN 5 MG/325 MG TAB PO PRN (21:39)
--- NOTE | 2017-02-26 21:55 | HHI.PR ---
Subjective Remarks deferred entry - patient seen earlier at 6:50 pm Patient c/o pain everywhere vs stable Objective Vitals Vital Signs Date Time Temp Pulse Resp B/P Pulse Ox O2 Delivery O2 Flow Rate FiO2 02/26/17 17:44 97.5 79 17 127/69 99 02/26/17 06:35 97.1 68 16 99/58 99 I/O 02/25/17 02/25/17 02/25/17 02/26/17 02/26/17 02/26/17 07:00 15:00 23:00 07:00 15:00 23:00 Intake Total 720 ml 0 ml 1200 ml 600 ml Balance 720 ml 0 ml 1200 ml 600 ml Intake Oral 480 ml 0 ml 1200 ml 600 ml Oral Supplement 240 ml # Voids 2 1 2 2 Result Diagram: 02/23/17 0734 Imaging Last Impressions Lower Extremity Ultrasound 02/26/17 0000 Signed Impressions: Service Date/Time: Sunday, February 26, 2017 10:58 - CONCLUSION: Normal examination. Alexsander Marshall MD Shoulder X-Ray 02/24/17 0000 Signed Impressions: Service Date/Time: Friday, February 24, 2017 21:38 - CONCLUSION: 1. Calcific tendinosis and high riding humeral head consistent with rotator cuff pathology. 2. No fracture or dislocation. Aryan Calzada MD Lumbar Spine X-Ray 02/24/17 0000 Signed Impressions: Service Date/Time: Friday, February 24, 2017 21:37 - CONCLUSION: DISH without evidence for fracture. Aryan Calzada MD Knee X-Ray 02/24/17 0000 Signed Impressions: Service Date/Time: Friday, February 24, 2017 21:39 - CONCLUSION: Mild degenerative changes. Aryan Calzada MD Abdomen X-Ray 02/24/17 0000 Signed Impressions: Service Date/Time: Friday, February 24, 2017 21:36 - CONCLUSION: Large amount of stool. Aryan Calzada MD Objective Remarks GENERAL: This is a well-nourished, well-developed patient, in no apparent distress. SKIN: No rashes, ecchymoses or lesions. Cool and dry. HEAD: Atraumatic. Normocephalic. No temporal or scalp tenderness. EYES: Pupils equal round and reactive. Extraocular motions intact. No scleral icterus. No injection or drainage. ENT: Nose without bleeding, purulent drainage or septal hematoma. Throat without erythema, tonsillar hypertrophy or exudate. Uvula midline. Airway patent. NECK: Trachea midline. No JVD or lymphadenopathy. Supple, nontender, no meningeal signs. CARDIOVASCULAR: Regular rate and rhythm without murmurs, gallops, or rubs. RESPIRATORY: Clear to auscultation. Breath sounds equal bilaterally. No wheezes , rales, or rhonchi. GASTROINTESTINAL: Abdomen soft, nondistended. (+) Tenderness palpation of the lower abdomen and suprapubic area. No hepato-splenomegaly, or palpable masses. No guarding. MUSCULOSKELETAL: Extremities without clubbing, cyanosis, or edema. Appreciable edema in the right knee with superficial abrasion. Patient elicits tenderness to palpation of both wrists, both shoulders, right elbow, both knees and lumbar spine. No calf tenderness. Right lower extremity looks slightly more swollen when compared to the left, also both lower extremities are tender to palpation. NEUROLOGICAL: Awake and alert. Oriented to self and place only. Able to move all extremities. No focal neurologic findings appreciated. Normal speech. Medications and IVs Current Medications Medications (Trade) Dose Ordered Sig/Zhane Route Start Time Stop Time Status Last Admin (Cortisporin Otic Soln) 3 drop Q6HR RIGHT EAR 02/22/17 02:30 02/26/17 21:40 (Benadryl) 50 mg HS PRN PO 02/23/17 15:15 02/25/17 21:06 (Milk Of Magnesia Liq) 30 ml DAILY PRN PO 02/23/17 15:15 02/26/17 21:38 (Mag-Al Plus Susp Liq) 30 ml Q6H PRN PO 02/23/17 15:15 (Atarax) 50 mg Q6H PRN PO 02/23/17 15:15 (Cogentin) 1 mg BID PO 02/23/17 21:00 02/26/17 21:39 (Theragran) 1 tab DAILY PO 02/24/17 09:00 02/26/17 08:50 (Desyrel) 50 mg HS PRN PO 02/23/17 15:15 02/26/17 21:39 (SEROquel) 50 mg BID@18 PO 02/23/17 18:00 02/26/17 18:34 (SEROquel) 400 mg HS PO 02/23/17 21:00 02/26/17 21:38 (Percocet 5-325 Mg) 1 tab Q4H PRN PO 02/25/17 17:30 02/26/17 21:39 A/P Assessment and Plan 61-year-old female who is legally blind with no significant past medical history besides previous migraines who was admitted to the psychiatric unit under [facility] act for refusing her medications as well as having increased auditory hallucinations that are telling her to get hammering to hurt others. Hospitalist services were consulted for medical management. Schizoaffective disorder, bipolar type Management per psychiatric team Multiple joint pains and lumbar spine status post fall with appreciable swelling in the right knee X-ray of the right shoulder shows calcific tendinosis and high riding humeral head consistent with rotator cuff pathology. No fracture or dislocation. X-ray of the left shoulder shows hydroxyapatite deposition without fracture or dislocation. Degenerative changes. Lumbar spine shows DISH without evidence for fracture. Knee x-ray shows degenerative changes. Follow-up with orthopedic surgery as an outpatient Lower abdominal and suprapubic pain Obtain UA KUB showed large amount of stool - I will place patient on Colace and will give MiraLAX 1. Monitor for BM Right Lower extremity edema/BL lower extremity pain Check venous doppler to r/o DVT ----> negative DVT prophylaxis Encourage ambulation Will sign off - please reconsult as needed. Jesús Dillon MD February 26, 2017 21:55
[2017-02-26] MEDS ORDERED: ONDANSETRON HCL 4 MG/2 ML VIAL IV PUSH PRN (22:15)
[2017-02-26] MEDS ORDERED: ONDANSETRON ODT 4 MG TAB SL PRN (22:16)
[2017-02-27] MEDS: NEOMYCIN/POLYMYXIN/HYDROCORT OTIC SOLN 10 ML BTL RIGHT EAR SCH ×3 (05:50→17:20)
[2017-02-27 06:00] VITALS: BP 98/58; PULSE 79; RESP 16; TEMP 98.1
[2017-02-27] MEDS: MULTIVITAMIN TAB PO SCH (08:24)
[2017-02-27] MEDS: QUEtiapine FUMARATE 25 MG TAB PO SCH ×2 (08:24→17:20)
[2017-02-27] MEDS: BENZTROPINE MESYLATE 1 MG TAB PO SCH ×2 (08:24→20:40)
--- NOTE | 2017-02-27 11:16 | HHI.PYPN ---
Subjective Remarks Pt seen and discussed with staff. She has been oppositional and engaging in bizarre behaviors on unit. Staff state that pt became upset last night and attempted to induce vomiting by sticking fingers down throat. During interview, she is focused on discharge and is irritable. No SI/HI No medications side effects. Objective Alert: Yes [place]: Person, Place, Date Mood: Calm, Other (irritable) Affect: Restricted Memory Intact: Comment (Unable to tets) Hallucinations: Auditory Delusions: Yes Delusion Type: Paranoid Suicidal: Ideation (Unable to assess) Homicidal: Ideation (to take a hammer and hurt people) Insight/Judgment poor Vitals/IOs Vital Signs Date Time Temp Pulse Resp B/P Pulse Ox O2 Delivery O2 Flow Rate FiO2 02/27/17 06:00 98.1 79 16 98/58 02/26/17 17:44 99 Intake and Output 02/26/17 02/26/17 02/27/17 08:00 16:00 00:00 Intake Total 0 ml 1200 ml 1560 ml Balance 0 ml 1200 ml 1560 ml Assessment & Plan Problem List: (1) SCHIZOAFFECTIVE DISORDER, BIPOLAR TYPE ICD Code: F25.0 Assessment & Plan continue current tx plan. Estimated LOS: days Justification for Cont. Inpt. impairments in self care and reality testing Request HC Surrog/Guard Advoc?: Yes Kassy Levine MD February 27, 2017 11:16
[2017-02-27] MEDS: oxyCODONE/ACETAMINOPHEN 5 MG/325 MG TAB PO PRN (17:32)
[2017-02-27 18:00] VITALS: BP 112/57; PULSE 76; RESP 17; TEMP 97.9; O2SAT 99
[2017-02-27] MEDS: QUEtiapine FUMARATE 200 MG TAB PO SCH (20:40)
[2017-02-27] MEDS: traZODone HCL 50 MG TAB PO PRN (20:40)
[2017-02-28] MEDS: oxyCODONE/ACETAMINOPHEN 5 MG/325 MG TAB PO PRN ×2 (04:29→08:39)
[2017-02-28] MEDS: NEOMYCIN/POLYMYXIN/HYDROCORT OTIC SOLN 10 ML BTL RIGHT EAR SCH ×4 (04:30→18:00)
[2017-02-28 06:02] VITALS: BP 119/58; PULSE 76; RESP 16; TEMP 97.9; O2SAT 96
[2017-02-28] MEDS: MULTIVITAMIN TAB PO SCH (08:33)
[2017-02-28] MEDS: BENZTROPINE MESYLATE 1 MG TAB PO SCH ×2 (08:33→20:47)
[2017-02-28] MEDS: QUEtiapine FUMARATE 25 MG TAB PO SCH ×2 (08:33→18:11)
--- NOTE | 2017-02-28 13:54 | HHI.PYPN ---
Subjective Remarks PT seen and discussed with staff. She has been in better behavioral control today. She is taking medications without side effects. No SI/hI Objective Alert: Yes [place]: Person, Place, Date Mood: Calm, Other (irritable) Affect: Restricted Memory Intact: Comment (Unable to tets) Hallucinations: Auditory Delusions: Yes Delusion Type: Paranoid Suicidal: Ideation (Unable to assess) Homicidal: Ideation (to take a hammer and hurt people) Insight/Judgment poor Vitals/IOs Vital Signs Date Time Temp Pulse Resp B/P Pulse Ox O2 Delivery O2 Flow Rate FiO2 02/28/17 06:02 97.9 76 16 119/58 96 Intake and Output 02/27/17 02/27/17 02/28/17 08:00 16:00 00:00 Intake Total 480 ml 240 ml 1200 ml Balance 480 ml 240 ml 1200 ml Assessment & Plan Problem List: (1) SCHIZOAFFECTIVE DISORDER, BIPOLAR TYPE ICD Code: F25.0 Assessment & Plan Continue current tx plan. Estimated LOS: days Justification for Cont. Inpt. risk of decompensation Request HC Surrog/Guard Advoc?: Yes Kassy Levine MD February 28, 2017 13:54
[2017-02-28 19:57] VITALS: BP 129/64; PULSE 66; RESP 16; TEMP 97.5; O2SAT 97
[2017-02-28] MEDS: QUEtiapine FUMARATE 200 MG TAB PO SCH (20:48)
[2017-03-01] MEDS: NEOMYCIN/POLYMYXIN/HYDROCORT OTIC SOLN 10 ML BTL RIGHT EAR SCH ×4 (05:30→17:42)
[2017-03-01 05:37] VITALS: BP 101/50; PULSE 62; RESP 18; TEMP 98.1; O2SAT 97
[2017-03-01] MEDS: BENZTROPINE MESYLATE 1 MG TAB PO SCH ×2 (08:26→20:43)
[2017-03-01] MEDS: MULTIVITAMIN TAB PO SCH (08:26)
[2017-03-01] MEDS: QUEtiapine FUMARATE 25 MG TAB PO SCH ×2 (08:27→17:41)
--- NOTE | 2017-03-01 08:56 | HHI.PYPN ---
Subjective Remarks Patient seen in dayroom with floor staff. Patient sitting in Khad[place]ah chair clean, patient accepting a cooperating with staff assistance with hygiene. Stomachache from varus minor somatic complaints today asked me to look at her right thumb. I see no problems with except perhaps some mild arthritic changes. However she still remains adamant about not returning to the family home. She is willing to go to either an [facility] or shelter. She is compliant with her medications. Not as loud intrusive or irritable Review of Systems Except as stated in HPI: all other systems reviewed are Neg Objective Alert: Yes [place]: Person, Place, Date Mood: Calm, Other (irritable) Affect: Restricted Memory Intact: Comment (Unable to tets) Hallucinations: Auditory Delusions: Yes Delusion Type: Paranoid Suicidal: Ideation (Unable to assess) Homicidal: Ideation (to take a hammer and hurt people) Insight/Judgment Poor Vitals/IOs Vital Signs Date Time Temp Pulse Resp B/P Pulse Ox O2 Delivery O2 Flow Rate FiO2 03/01/17 05:37 98.1 62 18 101/50 97 Intake and Output 02/28/17 02/28/17 03/01/17 08:00 16:00 00:00 Intake Total 240 ml 1200 ml Balance 240 ml 1200 ml Assessment & Plan Problem List: (1) SCHIZOAFFECTIVE DISORDER, BIPOLAR TYPE ICD Code: F25.0 Assessment & Plan Estimated LOS: days patient remains somewhat irritable, vigilant if not mildly delusional. Though redirectable, with some calming of her affect Justification for Cont. Inpt. At this time patient will decompensate if placed in a lower level of care Discharge Planning To be determined Request HC Surrog/Guard Advoc?: Yes Pablito Simms MD March 01, 2017 08:56
[2017-03-01 18:12] VITALS: BP 124/60; PULSE 72; RESP 18; TEMP 97.8
[2017-03-01] MEDS: traZODone HCL 50 MG TAB PO PRN (20:43)
[2017-03-01] MEDS: oxyCODONE/ACETAMINOPHEN 5 MG/325 MG TAB PO PRN (20:43)
[2017-03-01] MEDS: QUEtiapine FUMARATE 200 MG TAB PO SCH (20:43)
[2017-03-01] MEDS: MAGNESIUM HYDROXIDE SUSP 30 ML CUP PO PRN (21:12)
[2017-03-02] MEDS: NEOMYCIN/POLYMYXIN/HYDROCORT OTIC SOLN 10 ML BTL RIGHT EAR SCH ×3 (05:55→12:00)
[2017-03-02 06:07] VITALS: BP 104/54; PULSE 77; RESP 18; TEMP 97.8; O2SAT 96
[2017-03-02] MEDS ORDERED: Benztropine PO (08:18)
[2017-03-02] MEDS ORDERED: CORTI10A RIGHT EAR (08:18)
[2017-03-02] MEDS ORDERED: QUET1TAB9 PO (08:18)
[2017-03-02] MEDS ORDERED: QUET1TAB7 PO (08:18)
[2017-03-02] MEDS ORDERED: THERTAB15 PO (08:18)
[2017-03-02] MEDS ORDERED: TRAZ50TA12 PO (08:18)
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
[2017-03-02] MEDS: BENZTROPINE MESYLATE 1 MG TAB PO SCH (09:06)
[2017-03-02] MEDS: QUEtiapine FUMARATE 25 MG TAB PO SCH (09:06)
[2017-03-02] MEDS: MULTIVITAMIN TAB PO SCH (09:07)
== END 2017-03-02 14:20 | disposition home or self-care (01) | DRG 885 ==
LOC: NEPC 12:28 → NEDA 02-22 15:01 → H250 02-22 16:06
PROVIDERS: ADMIT Psychiatry & Neurology Psychiatry; ATTEND Psychiatry & Neurology Psychiatry
DX: F25.0 Schizoaffective disorder, bipolar type (principal); Z91.14 Patient's other noncompliance with medication regimen; H54.8 Legal blindness, as defined in USA; Z87.891 Personal history of nicotine dependence; M79.89 Other specified soft tissue disorders; R10.30 Lower abdominal pain, unspecified
CPT/HCPCS: 72100; 73030; 73560; 74000; 80048; 80053; 80061; 80307; 83036; 85025; 93970; 96372; J2060; Q0163